=== PATIENT | female | born 1970 | race Caucasian/White ===

== ENCOUNTER 2016-12-27 08:41 | Day surgery (SDC) | payer OTHER ==
[~2016-12-27] VITALS: Ht 167.6 cm; Wt 123.4 kg
[~2016-12-27 08:41] MED LIST: ADDERALL XR 2020 MG PO; AMOX TR-K CLV1 EAC4 PO; AZITHROMYCIN500 M1 PO; BACTRIM,SEPT1 TABLET PO; DEPAKOTE ER500 MG PO; FLEXERIL10 MG PO; FLUVOXAMINE MA100 MG PO; FUROSEMIDE40 MG PO; GABAPENTIN600 MG PO; HIBICLENS118 ML TP; HYDROCODON-ACE1 EAC7 PO; IRON325 M1 PO; K-DUR20 MEQ PO; KLONOPIN0.5 M1 PO; LAMICTAL100 MG PO; LATUDA20 MG PO; MOBIC15 MG PO; MOBIC7.5 MG PO; MUPIROCIN1 GM TP; MUPIROCIN22 GM TP; NAPROSYN500 MG PO; NEURONTIN400 MG PO; PERCOCET 10/1 TABLET PO; PERCOCET 7.51 TABLET PO; PREDNISONE20 MG PO; PROAIR HFA8.5 GM IH; RELAFEN500 M1 PO; SKELAXIN800 MG PO; TIZANIDINE HCL2 M1 PO; ULTRAM50 MG PO; VITAMIN D-3 401 EACH PO; VITAMIN D35000 UNIT PO; ZIPRASIDONE HCL40 MG PO
== END 2016-12-27 10:00 | disposition home or self-care (01) ==
LOC: PAIN 08:41 → SDC 09:15 → PAIN 09:15
DX: M47.26 Other spondylosis with radiculopathy, lumbar region (principal); M48.06 Spinal stenosis, lumbar region; J44.9 Chronic obstructive pulmonary disease, unspecified; F41.8 Other specified anxiety disorders; E66.9 Obesity, unspecified; Z68.42 Body mass index [BMI] 45.0-49.9, adult; I89.0 Lymphedema, not elsewhere classified; F17.210 Nicotine dependence, cigarettes, uncomplicated; Z79.891 Long term (current) use of opiate analgesic
CPT/HCPCS: J1100; J2250; J3010

== ENCOUNTER 2017-04-01 07:19 | Day surgery (SDC) | payer OTHER ==
[~2017-04-01] VITALS: Ht 167.6 cm; Wt 114.3 kg
[~2017-04-01 07:19] MED LIST changes: +AMBIEN5 MG PO; +ATIVAN1 MG PO; +COLACE100 MG PO; -LAMICTAL100 MG PO; +LAMICTAL200 MG PO; -RELAFEN500 M1 PO; +RELAFEN750 MG PO
== END 2017-04-01 09:23 | disposition home or self-care (01) ==
LOC: PAIN 07:19
DX: M47.26 Other spondylosis with radiculopathy, lumbar region (principal); M48.061 Spinal stenosis, lumbar region without neurogenic claudication; G89.29 Other chronic pain; M54.9 Dorsalgia, unspecified; M47.814 Spondylosis without myelopathy or radiculopathy, thoracic region; E66.9 Obesity, unspecified; Z68.41 Body mass index [BMI] 40.0-44.9, adult; M25.561 Pain in right knee; M25.562 Pain in left knee; G47.30 Sleep apnea, unspecified; J44.9 Chronic obstructive pulmonary disease, unspecified; F17.200 Nicotine dependence, unspecified, uncomplicated; I10 Essential (primary) hypertension; F41.9 Anxiety disorder, unspecified
CPT/HCPCS: J1100; J2250; J3010

== ENCOUNTER 2017-05-13 05:12 | Day surgery (SDC) | payer OTHER ==
[~2017-05-13] VITALS: Ht 167.6 cm; Wt 113.9 kg
[2017-05-13 06:01] VITALS: BP 120/87
[2017-05-13 07:06] LABS: METH RESISTANT S AUREUS PCR NEGATIVE (NEGATIVE)
[2017-05-13 07:08] LABS: PROBE CHECK PASS; SPECIMEN PROCESSING CONTROL PASS
[2017-05-13 10:03] VITALS: BP 99/67
[2017-05-13 11:23] VITALS: BP 155/83
== END 2017-05-13 11:10 | disposition home or self-care (01) ==
LOC: SDC
PROVIDERS: Obstetrics & Gynecology
DX: N93.8 Other specified abnormal uterine and vaginal bleeding (principal); J44.9 Chronic obstructive pulmonary disease, unspecified; E66.9 Obesity, unspecified; Z68.41 Body mass index [BMI] 40.0-44.9, adult; G89.29 Other chronic pain; F31.9 Bipolar disorder, unspecified; F41.0 Panic disorder [episodic paroxysmal anxiety]; G47.30 Sleep apnea, unspecified; F17.200 Nicotine dependence, unspecified, uncomplicated; Z80.3 Family history of malignant neoplasm of breast; Z80.0 Family history of malignant neoplasm of digestive organs; Z82.49 Family history of ischemic heart disease and other diseases of the circulatory system; Z83.3 Family history of diabetes mellitus; Z81.8 Family history of other mental and behavioral disorders
CPT/HCPCS: 87641; 88305; J0131; J0690; J1100; J1170; J1885; J2250; J2405; J3010

== ENCOUNTER 2017-07-18 10:20 | Day surgery (SDC) | payer OTHER ==
[~2017-07-18] VITALS: Ht 167.6 cm; Wt 114.3 kg
== END 2017-07-18 11:47 | disposition home or self-care (01) ==
LOC: PAIN 10:20 → SDC 10:45 → PAIN 11:47
DX: M47.816 Spondylosis without myelopathy or radiculopathy, lumbar region (principal); M51.16 Intervertebral disc disorders with radiculopathy, lumbar region; M48.061 Spinal stenosis, lumbar region without neurogenic claudication; E66.9 Obesity, unspecified; Z68.41 Body mass index [BMI] 40.0-44.9, adult; M51.34 Other intervertebral disc degeneration, thoracic region; M17.12 Unilateral primary osteoarthritis, left knee; G47.30 Sleep apnea, unspecified; J44.9 Chronic obstructive pulmonary disease, unspecified; Z79.891 Long term (current) use of opiate analgesic; F17.200 Nicotine dependence, unspecified, uncomplicated
CPT/HCPCS: J1030; J2250; J3010; S0020

== ENCOUNTER 2017-12-16 10:06 | Day surgery (SDC) | payer OTHER ==
[~2017-12-16] VITALS: Ht 167.6 cm; Wt 105.6 kg
[~2017-12-16 10:06] MED LIST changes: +AMBIEN10 MG PO; -AMBIEN5 MG PO
== END 2017-12-16 12:35 | disposition home or self-care (01) ==
LOC: PAIN 10:06 → SDC 10:45 → PAIN 10:45
PROC: 3E0S33Z Introduction of Anti-inflammatory into Epidural Space, Percutaneous Approach (ICD-10-PCS; principal; 2017-12-16)
PROC: B01B1ZZ Fluoroscopy of Spinal Cord using Low Osmolar Contrast (ICD-10-PCS; principal; 2017-12-16)
DX: M54.16 Radiculopathy, lumbar region (principal); M51.26 Other intervertebral disc displacement, lumbar region; M43.10 Spondylolisthesis, site unspecified; M47.816 Spondylosis without myelopathy or radiculopathy, lumbar region; M51.36 Other intervertebral disc degeneration, lumbar region; F17.200 Nicotine dependence, unspecified, uncomplicated
CPT/HCPCS: J1100; J2250